=== PATIENT | female | born 1945 | race Caucasian/White ===

== ENCOUNTER 2021-10-19 17:46 | Emergency (ER) | payer MEDICARE, OTHER ==
[~2021-10-19] VITALS: Ht 160 cm; Wt 84.3 kg
[2021-10-19] MEDS ORDERED: KETAMINE HCL 200 MG/20 ML VIAL IV ONE (18:10)
[2021-10-19] MEDS ORDERED: NS 1,000 ML IV SCH (18:10)
[2021-10-19] MEDS: propofoL 200 MG/20 ML VIAL IV.PROC PRN ×2 (18:26→18:33)
[2021-10-19 19:15] VITALS: BP 164/72
== END 2021-10-19 19:57 | disposition home or self-care (01) ==
LOC: M ED 17:46 → EDBD 17:46 → M ED 19:57
DX: T84.020A Dislocation of internal right hip prosthesis, initial encounter (principal); I10 Essential (primary) hypertension; E78.5 Hyperlipidemia, unspecified; Z91.018 Allergy to other foods; Z88.6 Allergy status to analgesic agent